=== PATIENT | female | born 1955 | race Caucasian/White ===

== ENCOUNTER 2016-12-17 13:14 | Emergency (ER) | payer BC ==
[~2016-12-17] VITALS: Ht 165.1 cm; Wt 61.7 kg
[~2016-12-17 13:14] MED LIST: EYE DROPS; NORCO 5-325 TA1 EACH PO
[2016-12-17 13:17] VITALS: BP 130/80
[2016-12-17] MEDS ORDERED: NORCO 5-325 TA1 EACH PO (13:38)
== END 2016-12-17 13:48 | disposition home or self-care (01) ==
LOC: ER 13:14
DX: S62.101A Fracture of unspecified carpal bone, right wrist, initial encounter for closed fracture (principal); K21.9 Gastro-esophageal reflux disease without esophagitis; F10.99 Alcohol use, unspecified with unspecified alcohol-induced disorder; W19.XXXA Unspecified fall, initial encounter; Y93.89 Activity, other specified; Y92.89 Other specified places as the place of occurrence of the external cause; Y99.8 Other external cause status

== ENCOUNTER → 2018-11-11 | Outpatient (CLI) | payer BC | LOC: BC 08:51 | DX: Z12.31 Encounter for screening mammogram for malignant neoplasm of breast (principal) ==

== ENCOUNTER → 2019-11-17 | Outpatient (CLI) | payer BC | LOC: RAD 11:43 | PROVIDERS: ATTEND Family Medicine | DX: Z12.31 Encounter for screening mammogram for malignant neoplasm of breast (principal) ==

== ENCOUNTER → 2020-10-27 | Outpatient (CLI) | payer OTHER | LOC: MRI 10:25 | PROVIDERS: ATTEND Family Medicine | DX: M17.12 Unilateral primary osteoarthritis, left knee (principal); M25.762 Osteophyte, left knee; M25.462 Effusion, left knee; M25.562 Pain in left knee ==

== ENCOUNTER → 2020-11-17 | Outpatient (CLI) | payer OTHER | LOC: BC 10:20 | PROVIDERS: ATTEND Family Medicine | DX: Z12.31 Encounter for screening mammogram for malignant neoplasm of breast (principal) ==